=== PATIENT | female | born 1980 | race Caucasian/White ===

== ENCOUNTER 2019-12-25 09:05 | Emergency (ER) | payer OTHER, SELFPAY ==
[2019-12-25 09:14] VITALS: BP 147/118; PULSE 79; RESP 16; TEMP 36.4; O2SAT 99
--- NOTE | 2019-12-25 09:25 | ED.BACK ---
HPI - Back Pain/Injury General Chief Complaint: Back Pain/Injury Stated Complaint: tail bone pain History of Present Illness HPI Narrative: The obese and tall patient, who is on minimal medications, presents with low back pain. Patient states she has a couple day worsening of intermittent several year history of coccyx pain. Symptoms are mild, actually at the LS junction, worse with activity, better at rest. No fever, numbness/weakness, recent injury, bowel?bladder symptoms, frequency/hematuria/dysuria; there is some slight radiation to the right posterior thigh. Her last visit was several years ago to [place] [facility] Related Data Allergies Allergy/AdvReac Type Severity Reaction Status Date / Time No Known Allergies Allergy Unverified 03/28/16 20:12 Review of Systems Review of Systems: Narrative: General/Constitutional: No weight loss,fever Eyes: N0: Redness,discharge Ears/Nose/Throat: No: Epistaxis,ear discharge Respiratory: Denies: Hemoptysis Gastrointestinal: No Vomiting, Bleeding-rectal Skin: No Lumps, eruption Neurologic: No Focal Weakness,Sz Hematologic: Denies: Petechiae/Purpura Psychiatric: No: Suicida ideationl All Other Systems: Reviewed and Negative PMFSH Comments At time of signature, agree with nursing past medical, surgical, social and family history. There is no relevant family history pertinent to the presenting complaint Exam Narrative: Exam Narrative: General Appearance: Well appearing, Well nourished EYE: PERRLA, Conjunctiva clear Ears: External ear normal Nose: Normal nose Mouth/Throat: Normal appearing, Normal lips Neck: Supple Respiratory: Airway patent Abdomen: Soft Musculoskeletal: Normal strength (no footdrop, 5/5 : EH L-FHL, gastroc-AT, no saddle weakness) Spine/Back: Paraspinal muscle tender (with mild decreased range of motion; right LS junction tender mildly) Skin: Normal color Neurological: A&O x3, CN II-XII intact, Normal reflexes (symmetric, 2+ KJ, trace AJ) Psychiatric: Normal mood Course Vital Signs Vital signs: Vital Signs Temperature 97.6 F 12/25/19 09:14 Pulse Rate 79 12/25/19 09:14 Respiratory Rate 16 12/25/19 09:14 Blood Pressure 147/118 H 12/25/19 09:14 Pulse Oximetry 99 12/25/19 09:14 Temperature 97.6 F 12/25/19 09:14 Pulse Rate 79 09/05/20 09:14 Respiratory Rate 16 12/25/19 09:14 Blood Pressure 147/118 H 12/25/19 09:14 Pulse Oximetry 99 12/25/19 09:14 Discharge Plan Discharge Clinical Impression: Elevated BP without diagnosis of hypertension Strain of lumbar region Qualifiers: Encounter type: initial encounter Qualified Code(s): S39.012A - Strain of muscle, fascia and tendon of lower back, initial encounter Patient Disposition: Home, Self-Care Condition: Stable Instructions: Acute Low Back Pain (ED) Prescriptions: New acetaminophen-codeine 300-30 mg tablet 1 tablet PO HS PRN (Reason: pain) Qty: 10 RF: 0 prednisone 20 mg tablet 60 mg PO DAILY Qty: 15 RF: 0 tramadol 50 mg tablet 50 mg PO TID PRN (Reason: pain) Qty: 15 RF: 1 Interventions: Discharge Disposition Last Done: 12/25/19 09:36 Follow-up/Referrals: Mary Lou,Waleska Bermudez MD [Primary Care Provider] - Discharge Date/Time: 12/25/19 09:37
--- NOTE | 2019-12-25 09:38 | PC.NURSE ---
B/P checked at discharge. 133/94. Encouraged to follow with pmd regarding increased blood pressure
== END 2019-12-25 09:37 | disposition home or self-care (01) ==
PROVIDERS: Emergency Provider Emergency Medicine; PCP Family Medicine
DX: S39.012A Strain of muscle, fascia and tendon of lower back, initial encounter (principal); X58.XXXA Exposure to other specified factors, initial encounter; R03.0 Elevated blood-pressure reading, without diagnosis of hypertension
CPT/HCPCS: 99203; G0463

== ENCOUNTER 2023-03-23 13:35 | Emergency (ER) | payer OTHER, SELFPAY ==
--- NOTE | ~2023-03-23 | CT_ITS ---
CT of the Abdomen and Pelvis: Indication: Abdominal pain Technique: 2.5 mm axial scans were obtained through the abdomen and pelvis following intravenous adm inistration of 100 cc of Omnipaque 350. Dose reduction technique was used on this scan by utilizing a utomated exposure control and iterative reconstruction technique. The dose-length product (DLP) was 1 527.44 mGy-cm. Findings: Scans through the lung bases are unremarkable. The liver, spleen, pancreas, gallbladder, adrenals and kidneys are within normal limits. No evidence of aortic aneurysm. No lymphadenopathy. No bowel obstruction or bowel wall thickening. There is no evidence to suggest acute appendicitis. Images through the pelvis were performed. Urinary bladder unremarkable. No adnexal mass seen. No asci rickie. Impression: No significant abnormalities seen. Reviewed, dictated and finalized at [facility]. [employer] Impression: No significant abnormalities seen.
[2023-03-23 13:49] VITALS: BP 157/102; PULSE 89; RESP 18; TEMP 36.3; O2SAT 98
[2023-03-23 14:09] LABS: Basophils Absolute Auto 0.1 K/mm3 (0.0-0.1); Basophils Percent Auto 0.8 % (0.2-1.2); Eosinophils Percent Auto 0.5 % (0-4.4); Hematocrit 43.3 % (37.0-47.0); Hemoglobin 14.2 g/dL (12.0-15.0); Immature Granulocyte Absolute 0.02 K/mm3 (0.00-0.031); Immature Granulocyte Percent A 0.3 % (0-0.5); Lymphocytes Absolute Auto 1.27 K/mm3 (0.9-3.2); Lymphocytes Percent Auto 20.1 % (18.3-44.2); Mean Corpuscular HGB Conc 32.8 g/dl (32-36); Mean Corpuscular Volume 91.5 fl (80-100); Mean Platelet Volume 10.6 fl (7.4-10.4); Monocytes Absolute Auto 0.5 K/mm3 (0.1-0.6); Monocytes Percent Auto 8.1 % (2.6-8.5); Neutrophils Absolute Auto 4.5 K/mm3 (1.3-6.7); Neutrophils Percent Auto 70.2 % (45.5-73.1); Platelet Count Result 265 k/mm3 (150-375); Red Blood Count 4.73 M/mm3 (4.2-5.4); Red Cell Distribution Width 13.1 % (11.5-14.5); White Blood Count 6.3 K/mm3 (4.5-10.0)
[2023-03-23 14:18] LABS: Alanine Aminotransferase 17 U/L (6-35); Albumin Level 4.5 g/dL (3.5-5.1); Alkaline Phosphatase 79 U/L (38-126); Anion Gap 10 mmol/L (8-16); Aspartate Amino Transferase 25 U/L (14-36); Blood Urea Nitrogen 9 mg/dL (7-17); Calcium 9.4 mg/dL (8.4-10.2); Carbon Dioxide 23 mmol/L (22-30); Chloride 105 mmol/L (98-107); Estimated CRCL calculation 103 ml/min; Estimated Glomerular Filt Rate > 60; Glucose 104 mg/dL (65-110); Lipase 30 U/L (23-300); Potassium 4.3 mmol/L (3.4-5.0); Sodium 138 mmol/L (137-145)
[2023-03-23 15:22] LABS: Appearance Urine Cloudy (Clear); Bacteria Urine 1+ /hpf; Bilirubin Urine 2+ (Negative); Blood Urine 3+ (Negative); Color Urine Dark Yellow (Yellow); Glucose Urine UA Negative (Negative); Ketones Urine Trace mg/dL (Negative); Leukocyte Esterase Ur 1+ LEU/UL (Negative); Mucus Urine Present /lpf; Need Manual Microscopic Reviewed; Nitrate Urine Negative (Negative); Protein Urine 1+ mg/dL (Negative); Squamous Epithelial Cell Urine Many /hpf (Few); pH Urine 5.5 (5.0-9.0)
[2023-03-23 15:23] LABS: Add Urine Microscopic? YES
[2023-03-23 18:46] VITALS: BP 146/110; PULSE 77; RESP 18; TEMP 36.4; O2SAT 99
[2023-03-23] MEDS: SODIUM CHLORIDE 0.9% IV 1,000 ML 999 ML IV CONT (21:47)
[2023-03-23] MEDS: ONDANSETRON INJ 4 MG/2 ML VIAL IV PUSH (21:47)
--- NOTE | 2023-03-24 00:08 | ED.GENADULT ---
HPI - General Adult General Chief complaint: Abdominal Pain Stated complaint: L upper abdominal pain/v/d Time Seen by Provider: 03/23/23 21:01 History of Present Illness HPI narrative: Patient 42-year-old female who presents the emergency department with chief complaint of abdominal pain diarrhea, the patient reports symptoms have been ongoing since Friday reports had some nausea with this and has had multiple bouts of liquid diarrhea. The patient denies blood in stool reports no prior intra-abdominal surgeries Related Data Allergies Allergy/AdvReac Type Severity Reaction Status Date / Time No Known Allergies Allergy Verified 03/23/23 13:49 Review of Systems Review of Systems: A 10 system review of systems was completed on the patient and is negative except for what is stated in the HPI. Nursing and ancillary documentation was reviewed. Exam Narrative: GENERAL: Well-appearing, well-nourished, and in no acute distress. HEAD: Normocephalic, atraumatic. EYES: PERRLA and EOMI. ENT: Nares clear, no rhinorrhea or epistaxis. Mucous membranes moist. NECK: Supple. CHEST: Clear to auscultation. No respiratory distress. HEART: Regular rate and rhythm. No murmur heard. Normal peripheral pulses. ABDOMEN: Soft, diffuse mild tenderness, nondistended, normal active bowel sounds. EXTREMITIES: Normal range of motion. No edema. SKIN: Warm, dry, no rash. NEURO: No focal deficits. Alert and oriented x3. PSYCH: Normal mood and affect. Course Vital Signs Vital signs: Vital Signs Temperature 36.3 C L 03/23/23 13:49 Pulse Rate 89 03/23/23 13:49 Respiratory Rate 18 03/23/23 13:49 Blood Pressure 157/102 H 03/23/23 13:49 Pulse Oximetry 98 03/23/23 13:49 Temperature 36.4 C L 03/23/23 18:46 Pulse Rate 77 03/23/23 18:46 Respiratory Rate 18 03/23/23 18:46 Blood Pressure 146/110 H 03/23/23 18:46 Pulse Oximetry 99 03/23/23 18:46 Medical Decision Making [facility] Narrative Medical decision making narrative: Differential diagnosis includes colitis diverticulitis, intra-abdominal infection, UTI, pyelonephritis Laboratory studies were obtained on the patient showed a white count of 6.3 electrolytes are within normal limits urinalysis showed 11-20 white blood cells positive leukocyte esterase 1+ bacteria CT scan showed evidence of a diarrheal illness Vital Signs Vital Signs: Vital Signs Temperature 36.3 C L 03/23/23 13:49 Pulse Rate 89 03/23/23 13:49 Respiratory Rate 18 03/23/23 13:49 Blood Pressure 157/102 H 03/23/23 13:49 Pulse Oximetry 98 03/23/23 13:49 Temperature 36.4 C L 03/23/23 18:46 Pulse Rate 77 03/23/23 18:46 Respiratory Rate 18 03/23/23 18:46 Blood Pressure 146/110 H 03/23/23 18:46 Pulse Oximetry 99 03/23/23 18:46 Lab Data 03/23/23 13:58 03/23/23 13:58 Labs: Lab Results 03/23/23 03/23/23 Range/Units 13:58 14:53 WBC 6.3 (4.5-10.0) K/mm3 RBC 4.73 (4.2-5.4) M/mm3 Hgb 14.2 (12.0-15.0) g/dL Hct 43.3 (37.0-47.0) % MCV 91.5 (80-100) fl MCH 30.0 (26-34) pg MCHC 32.8 (32-36) g/dl RDW 13.1 (11.5-14.5) % Plt Count 265 (150-375) k/mm3 MPV 10.6 H (7.4-10.4) fl Immature Gran % (Auto) 0.3 (0-0.5) % Neut % (Auto) 70.2 (45.5-73.1) % Lymph % (Auto) 20.1 (18.3-44.2) % Catron % (Auto) 8.1 (2.6-8.5) % Eos % (Auto) 0.5 (0-4.4) % Baso % (Auto) 0.8 (0.2-1.2) % Lymph # (Auto) 1.27 (0.9-3.2) K/mm3 Catron # (Auto) 0.5 (0.1-0.6) K/mm3 Eos # (Auto) 0.0 (0-0.3) K/mm3 Baso # (Auto) 0.1 (0.0-0.1) K/mm3 Abs Immat Gran (auto) 0.02 (0.00-0.031) K/mm3 Absolute Neuts (auto) 4.5 (1.3-6.7) K/mm3 Absolute Nucleated RBC 0.0 (0.0-0.012) K/mm3 Nucleated RBC % 0.0 (0.0-0.2) % Sodium 138 (137-145) mmol/L Potassium 4.3 (3.4-5.0) mmol/L Chloride 105 (98-107) mmol/L Carbon Dioxide 23 (22-30) mmol/L Anion Gap 10 (8-16) mmol/L BUN
[2023-03-24] MEDS: CEPHALEXIN 500 MG CAPSULE PO (00:30)
== END 2023-03-24 00:32 | disposition home or self-care (01) ==
PROVIDERS: Student in an Organized Health Care Education/Training Program; Emergency Provider Emergency Medicine; PCP Family Medicine
DX: N39.0 Urinary tract infection, site not specified (principal); R10.10 Upper abdominal pain, unspecified; R19.7 Diarrhea, unspecified
CPT/HCPCS: 36415; 74177; 80053; 81001; 81025; 83690; 85025; 87086; 87088; 96361; 96374; 99284; A9270; J2405; J7030; Q9967